=== PATIENT | male | born 1940 | race Caucasian/White ===

== ENCOUNTER 2016-10-01 03:19 | Observation (INO) ==
[2016-10-01 04:03] LABS: Basophils # (Auto) 0 K/mcL (0.0-0.3); Basophils % (Auto) 0.3 % (0.0-2.0); Eosinophils # (Auto) 0.3 K/mcL (0.0-0.7); Eosinophils % (Auto) 2.7 % (0.0-7.0); Granulocytes % (Auto) 70.7 % (38.0-78.0); Lymphocytes # (Auto) 1.8 K/mcL (1.5-4.8); Lymphocytes % (Auto) 19.1 % (15.5-49.0); Mean Cell Volume 99.7 fL (80.0-100.0); Mean Corpuscular HGB Conc 32.8 g/dL (31.0-36.0); Mean Corpuscular Hemoglobin 32.7 pg (26.0-34.0); Monocytes # (Auto) 0.7 K/mcL (0.1-0.9); Monocytes % (Auto) 7.2 % (1.0-9.0); Platelet Count 172 K/mcL (140-440); RBC 4.65 M/mcL (4.50-5.90); Red Cell Distribution Width 12.7 % (11.5-14.5)
[2016-10-01] MEDS ORDERED: ASPIRIN 81 MG TAB.CHEW CHEWED ONE (04:05)
[2016-10-01] MEDS ORDERED: ATORVASTATIN 20 MG TABLET PO ONE (04:33)
[2016-10-01 04:50] LABS: ALT/SGPT 20 U/l (0-40); Albumin 4.6 gm/dL (3.2-5.2); Albumin/Globulin Ratio 1.8 (1.0-2.3); Alkaline Phosphatase 60 U/L (39-117); Blood Urea Nitrogen 15 mg/dl (8-23)
--- NOTE | 2016-10-01 05:47 | Cat Scan Report ---
CLINICAL INFORMATION: Acute dysarthria evaluate for stroke COMPARISON: None. FINDINGS: CLINICAL INFORMATION: Acute dysarthria - possible stroke COMPARISON: None. TECHNIQUE: 2.5 mm helical slices were obtained in the skull base to vertex. Following reconstruction, axial reformatted images were reviewed at bone and parenchymal windows. FINDINGS: The ventricles, sulci, fissures, and cisterns are symmetrically enlarged compatible with mild age-related atrophy - no extra-axial fluid collections are appreciated. Patchy chronic ischemic changes in the deep cerebral white matter are also typical for age. There is a vague low-attenuation focus in the anterior left parietal lobe, near vertex, which is approximately 2 cm involving the cortical and subcortical white matter. This could indicate a subtle subacute infarct. There is no acute intracerebral hemorrhage, mass effect or edema. Bone windows show no osseous abnormality. Moderate mucosal thickening in the ethmoid sinuses compatible with moderate ethmoid sinusitis incidentally noted IMPRESSION: 1. No intracerebral hemorrhage. 2. Suspect small subacute cortical based infarct in the anterior left parietal lobe - near vertex 3. Mild atrophy and chronic ischemic changes in the deep cerebral white matter typical for age. 4. Moderate ethmoid sinusitis Interpreted and Authenticated by: Yair Jorgensen 10/01/16
--- NOTE | 2016-10-01 05:50 | XRay Report ---
CLINICAL INFORMATION: Stroke COMPARISON: 11/19/2011 FINDINGS: The heart is unremarkable. Mediastinum and pulmonary vessels are normal. There is minor atelectasis in the right base. No effusions. Bones and soft tissues are normal IMPRESSION: Mild right basilar atelectasis Interpreted and Authenticated by: Yair Jorgensen 10/01/16
--- NOTE | 2016-10-01 07:42 | Emergency Department Note ---
Neuro HPI - General Chief Complaint: Stroke Symptoms Stated Complaint: speech change Time Seen by Provider: 10/01/16 03:52 Source: patient Mode of arrival: ambulatory Limitations: no limitations - History of Present Illness HPI Narrative: This patient went to bed at 6 PM and woke up at 12:30 AM. At that time he was having some difficulty with speech with finding words and slurred speech. No other neuro deficits. He finally came to the emergency room 3 hours later. He is outside the window as we do not know the exact time of onset of his symptoms. - Related Data Home Medications: Home Medications Medication Instructions Recorded Confirmed Clobetasol Propionate/Emoll 10/01/16 Vitamin D3 10/01/16 Allergies/Adverse Reactions: Allergies Allergy/AdvReac Type Severity Reaction Status Date / Time No Known Drug Allergies Allergy Unverified 10/01/16 04:14 Review of Systems Constitutional: Denies: fever Eyes: Denies: eye pain ENT ED: Denies: ear pain Cardiovascular: Denies: chest pain, palpitations Respiratory: Denies: cough Gastrointestinal: Denies: abdominal pain, nausea Genitourinary: Denies: urgency Musculoskeletal: Denies: back pain Integumentary: Denies: rash Neurological: Denies: headache, weakness, numbness, paresthesias, confusion, abnormal gait, vertigo Past Medical History - Past Medical History Medical history: Reports: no medical history Physical Exam - General Limitations: no limitations General appearance: alert - Head Head exam: atraumatic - Eye Eye exam: Present: normal appearance - ENT ENT exam: normal exam - Neck Neck exam: Present: normal inspection - Chest Chest inspection: Present: normal inspection - Respiratory Respiratory exam: Present: normal lung sounds bilaterally - Cardiovascular Cardiovascular exam: Present: regular rate, normal rhythm, normal heart sounds - Abdominal Exam Abdominal exam: Present: soft. Absent: distention, tenderness - Neurological Exam Neurological exam: Present: alert - Expanded Neurological Exam Speech: Present: expressive aphasia Cranial nerves: facial palsy (VII): Normal Motor strength - LUE: 5/5 Motor strength - RUE: 5/5 Motor strength - LLE: 5/5 Motor strength - RLE: 5/5 - Psychiatric Psychiatric exam: Present: normal affect - Skin Skin exam: Present: warm, dry Course Vital Signs Temperature 97.7 F 10/01/16 03:22 Pulse Rate 68 10/01/16 03:22 Respiratory Rate 16 10/01/16 03:22 Blood Pressure 189/89 10/01/16 03:22 Pulse Oximetry (%) 98 10/01/16 03:22 Temperature 98.1 F 10/01/16 06:36 Pulse Rate 60 10/01/16 06:36 Respiratory Rate 20 10/01/16 06:36 Blood Pressure 155/78 10/01/16 06:36 Pulse Oximetry (%) 99 10/01/16 05:25 Neuro Symptoms/Deficit - MDM Narrative Medical decision making narrative: I discussed the case with the stroke neurologist Dr. Isidro Mensah. She felt the patient's outside the window for TPA treatment and there is really nothing that they could offer. - Lab Data Lab results reviewed: Yes I reviewed the patient's lab results. Result diagrams: 10/01/16 03:39 10/01/16 03:39 Lab Results 10/01/16 10/01/16 10/01/16 Range/Units 03:38 03:39 03:39 WBC 9.5 (4.5-11.0) K/mcL RBC 4.65 (4.50-5.90) M/mcL Hgb 15.2 (13.5-16.5) g/dL Hct 46.3 (41.0-55.0) % MCV 99.7 (80.0-100.0) fL MCH 32.7 (26.0-34.0) pg MCHC 32.8 (31.0-36.0) g/dL RDW 12.7 (11.5-14.5) % Plt Count 172 (140-440) K/mcL MPV 8.7 (7.4-10.4) fL Gran % 70.7 (38.0-78.0) % Lymph % (Auto) 19.1 (15.5-49.0) % Blanco % (Auto) 7.2 (1.0-9.0) % Eos % (Auto) 2.7 (0.0-7.0) % Baso % (Auto) 0.3 (0.0-2.0) % Gran # 6.7 (1.8-8.0) K/mcL Lymph # 1.8 (1.5-4.8) K/mcL Blanco # 0.7 (0.1-0.9) K/mcL Eos # 0.3 (0.0-0.7) K/mcL Baso # 0 (0.0-0.3) K/mcL PT 13.2 (11.9-14.5) sec INR 1.0 (0.9-1.1) APTT 28 (20-37) sec Sodium (133-145) mmol/L Potassium (3.3-5.1) mmol/L Chloride (96-108) mmol/L Carbon Dioxide (22-30) mmol/L Anion Gap (8-16) BUN (8-23) mg/dl Creatinine (0.7-1.2) mg/dl GFR Calculation Glucose (70-105) mg/dL Calcium (8.6-10.4) mg/dl Total Bilirubin (0.0-1.0) mg/dL AST (0-37) U/l ALT (0-40) U/l Alkaline Phosphatase (39-117) U/L Total Protein (5.9-8.4) gm/dL Albumin (3.2-5.2) gm/dL Globulin (2.2-3.7) gm/dL Albumin/Globulin Ratio (1.0-2.3) 10/01/16 Range/Units 03:39 WBC (4.5-11.0) K/mcL RBC (4.50-5.90) M/mcL Hgb (13.5-16.5) g/dL Hct (41.0-55.0) % MCV (80.0-100.0) fL MCH (26.0-34.0) pg MCHC (31.0-36.0) g/dL RDW (11.5-14.5) % Plt Count (140-440) K/mcL MPV (7.4-10.4) fL Gran % (38.0-78.0) % Lymph % (Auto) (15.5-49.0) % Blanco % (Auto) (1.0-9.0) % Eos % (Auto) (0.0-7.0) % Baso % (Auto) (0.0-2.0) % Gran # (1.8-8.0) K/mcL Lymph # (1.5-4.8) K/mcL Blanco # (0.1-0.9) K/mcL Eos # (0.0-0.7) K/mcL Baso # (0.0-0.3) K/mcL PT (11.9-14.5) sec INR (0.9-1.1) APTT (20-37) sec Sodium 139 (133-145) mmol/L Potassium 3.8 (3.3-5.1) mmol/L Chloride 99 (96-108) mmol/L Carbon Dioxide 31 H (22-30) mmol/L Anion Gap 9.0 (8-16) BUN 15 (8-23) mg/dl Creatinine 0.9 (0.7-1.2) mg/dl GFR Calculation 83 Glucose 127 H (70-105) mg/dL Calcium 8.7 (8.6-10.4) mg/dl Total Bilirubin 0.4 (0.0-1.0) mg/dL AST 17 (0-37) U/l ALT 20 (0-40) U/l Alkaline Phosphatase 60 (39-117) U/L Total Protein 7.2 (5.9-8.4) gm/dL Albumin 4.6 (3.2-5.2) gm/dL Globulin 2.6 (2.2-3.7) gm/dL Albumin/Globulin Ratio 1.8 (1.0-2.3) - Radiology Data Radiology results reviewed: Yes I reviewed the patient's radiology results. (CT of head was negative) Disposition Clinical Impression: Stroke Disposition: Xfer As Outpt/Obs ([facility]) Condition: Good
[2016-10-01] MEDS ORDERED: POTASSIUM CHLORIDE 20 MEQ PACKET PO PRN (07:58)
[2016-10-01] MEDS ORDERED: ACETAMINOPHEN 325 MG TABLET PO PRN (07:58)
[2016-10-01] MEDS ORDERED: ACETAMINOPHEN 1,000 MG/100 ML BOTTLE IV PRN (07:58)
[2016-10-01] MEDS ORDERED: ONDANSETRON 4 MG/2 ML VIAL IV PRN (07:58)
[2016-10-01] MEDS ORDERED: MAGNESIUM SULFATE 2 GM/50 ML BAG IV PRN (07:58)
[2016-10-01] MEDS ORDERED: MAGNESIUM HYDROXIDE 30 ML ORAL.SUSP PO PRN (07:58)
[2016-10-01 08:14] LABS: Appearance,Urine CLEAR; Bilirubin,Urine NEG (NEG); Color,Urine YELLOW; Glucose,Urine (UA) NEGATIVE (NEG); Leukocyte Esterase,Urine NEG /uL (NEG); Nitrate,Urine NEG (NEG); Protein,Urine NEG (NEG); Specific Gravity,Urine 1.014 (1.000-1.035); Urine Blood NEG mg/dL (<0.03); Urobilinogen,Urine NEG (NEG)
[2016-10-01] MEDS: 0.9 % SODIUM CHLORIDE 1,000 ML IV SCH (08:18)
[2016-10-01] MEDS ORDERED: ATORVASTATIN 40 MG TABLET PO SCH (09:00)
--- NOTE | 2016-10-01 09:06 | History and Physical Report ---
DATE OF ADMISSION: 10/01/2016 REASON FOR ADMISSION: New onset expressive aphasia. HISTORY OF CHIEF COMPLAINT: The patient is a 76-year-[place] , [place]. He woke up around 12:30 this morning with difficulty word finding and slurred speech; however, he denied any thunderclap headache. He went to bed around 6 in the evening feeling fine, subsequently came to [facility] Emergency Room. Initial workup was essentially unremarkable with negative head CT and expressive aphasia. Neurology was consulted, but patient was out of the window for TPA. He was advised to be admitted for further stroke workup. The patient at the time of examination is alert, oriented, but unable to express, has significant word finding. He denies diplopia, seizure episode. Denies incontinence, unilateral weakness, sensation abnormalities or swallowing difficulties. He is an active smoker, does not take any medication. He denies prior similar events. REVIEW OF SYSTEMS: Ten-point review of system was performed and negative except the ones discussed above. PAST MEDICAL HISTORY: None significant. FAMILY HISTORY: None significant. SOCIAL HISTORY: The patient is to his , Liudmila, [place] He smokes one-quarter pack a day, drinks occasional wine. He is retired. FULL CODE STATUS. He sees primary care physician, Jackie Viveros MD. MEDICATIONS: None. ALLERGIES: None. PHYSICAL EXAMINATION: GENERAL: The patient is alert. BMI 21. Height 5 feet 11 inches. VITAL SIGNS: Blood pressure 157/74, respiration rate 20, temperature 98.4, pulse 65, sats 99% on room air. HEENT: Pupils bilaterally symmetric and reactive. Oral cavity is dry. No ear or nose discharge. Head is normocephalic and atraumatic. NECK: No lymphadenopathy. HEART: S1, S2, regular rhythm. Ejection systolic murmur appreciated, but no adventitious sounds. CHEST: Clear to auscultation. ABDOMEN: Soft and nontender. LOWER EXTREMITIES: No cyanosis or clubbing. No joint swelling except for generalized dry skin. Normal range of motion of the joints. SKIN: Otherwise, no suspicious lesions. PSYCHIATRIC: Alert and cooperative. NEURO: Classic expressive aphasia, but no unilateral facial droop, unilateral weakness or sensory abnormalities. Reflexes are symmetrical. Cerebellar signs negative. Higher functions preserved except for repetition. LABS AND IMAGING: Head CT: Subacute cortical based infarct in the anterior left parietal lobe. X-ray chest: Right atelectasis. White count 9.5, hemoglobin 15.2, platelets 172, sodium 139, potassium 3.8, creatinine 0.9, BUN 15. UA unremarkable. ASSESSMENT AND PLAN: A 76-year-old admitted with acute left hemispheric CVA with expressive aphasia. 1. Left hemispheric CVA, beyond the window for TPA, ischemic. Start aspirin and statin, further stroke workup including echocardiogram, MRI brain along with MR angiogram neck. Continue aggressive bowel protocol and speech therapy evaluation, physical therapy and future stroke prophylaxis. 2. The patient will be admitted as observation for continued stroke evaluation as above. AA:[email or web address] Job ID: [id number] Doc ID: [id number] Napoleon Monson MD MTDD
[2016-10-01] MEDS: MULTIVIT,THER IRON,CA,FA & MIN 1 TABLET PO SCH (10:11)
[2016-10-01] MEDS: HEPARIN 5,000 UNIT/ML VIAL SQ SCH ×2 (10:11→20:13)
[2016-10-01] MEDS: DOCUSATE SODIUM 100 MG CAPSULE PO SCH ×2 (10:11→20:18)
[2016-10-01] MEDS: 0.9 % SODIUM CHLORIDE 10 ML SYRINGE IV SCH ×2 (14:10→20:18)
[2016-10-01] MEDS ORDERED: SENNOSIDES/DOCUSATE SODIUM 1 TAB TABLET PO SCH (21:00)
[2016-10-02] MEDS: 0.9 % SODIUM CHLORIDE 1,000 ML IV SCH (04:17)
[2016-10-02] MEDS: 0.9 % SODIUM CHLORIDE 10 ML SYRINGE IV SCH (05:18)
[2016-10-02 05:44] LABS: Mean Cell Volume 100.3 fL (80.0-100.0); Mean Corpuscular HGB Conc 32.8 g/dL (31.0-36.0); Mean Corpuscular Hemoglobin 32.9 pg (26.0-34.0); Platelet Count 148 K/mcL (140-440); RBC 4.16 M/mcL (4.50-5.90); Red Cell Distribution Width 12.8 % (11.5-14.5)
[2016-10-02 06:39] LABS: ALT/SGPT 18 U/l (0-40); Albumin 3.9 gm/dL (3.2-5.2); Albumin/Globulin Ratio 2.1 (1.0-2.3); Alkaline Phosphatase 54 U/L (39-117); Bilirubin,Direct < 0.2 mg/dL (0.0-0.3); Blood Urea Nitrogen 13 mg/dl (8-23); Gamma Glutamyl Transpeptidase 18 U/L (8-61); Magnesium 1.9 mg/dL (1.6-2.5); Uric Acid 5.7 mg/dL (2.5-8.0)
--- NOTE | 2016-10-02 08:27 | Echocardiogram Report ---
ECHOCARDIOGRAM: 2-D and M-mode echocardiography with cardiac Doppler and color flow imaging were performed with a [employer] Aplio MX. Indication is CVA. A diagnostic M-mode tracing of the LV could not be obtained. Overall size of the four cardiac chambers appeared normal. LV wall thickness appeared moderately increased. Systolic performance appeared normal. Estimated ejection fraction is 65%. The aortic root appeared mildly to moderately dilated. The aortic valve appeared trileaflet and normal. There was no evidence for aortic stenosis or aortic regurgitation by Doppler interrogation. The mitral and tricuspid valves appeared unremarkable. Doppler interrogation of LV inflow disclosed mildly prolonged early diastolic deceleration time and slight ''a'' wave dominance indicating delayed LV relaxation. There was no evidence for mitral regurgitation. Pulmonary venous interrogation disclosed normal ''s'' wave dominance. The pulmonic valve was not visualized. Pulmonary artery acceleration time was difficult to measure. There was no evidence for pulmonic stenosis or pulmonic regurgitation. There was no evidence for tricuspid regurgitation. No intracardiac shunting was appreciated. There was no evidence of pericardial effusion. The IVC was of normal diameter and showed normal respiratory variation. Sinus rhythm was present. CONCLUSION: Mild to moderate aortic root dilatation. Moderate concentric LVH with normal systolic performance. (See accompanying M-mode and Doppler reports for quantitation.) LWG:[id number] Job ID: [id number] Doc ID: [id number] Tariq Sullivan MD
[2016-10-02 08:49] LABS: Lymphocytes % 17 % (15-49); Macrocytosis 1+ (NONE SEEN); Monocytes % (Manual) 10 % (1-9); Platelet Estimate NORMAL (NORMAL); RBC Morphology ABNORM (NORMAL); Segmented Neutrophils % 73 % (38-78)
[2016-10-02] MEDS ORDERED: ASPIRIN 325 MG ENTERIC COATED TABLET PO SCH (09:00)
[2016-10-02] MEDS ORDERED: ATORVASTATIN 40 MG TABLET PO SCH (09:00)
[2016-10-02] MEDS: MULTIVIT,THER IRON,CA,FA & MIN 1 TABLET PO SCH (09:50)
[2016-10-02] MEDS: DOCUSATE SODIUM 100 MG CAPSULE PO SCH (09:50)
[2016-10-02] MEDS: HEPARIN 5,000 UNIT/ML VIAL SQ SCH (09:51)
--- NOTE | 2016-10-02 11:45 | Magnetic Resonance Report ---
CLINICAL INFORMATION: Acute dysarthria COMPARISON: None. TECHNIQUE: Sagittal T1 FLAIR, axial diffusion ADC, T1 FLAIR, T2 FLAIR propeller, T2 propeller gradient, T1 post Magnevist and coronal T1 FLAIR post Magnevist images were acquired. FINDINGS: The ventricles, sulci, fissures and cisterns are symmetrically enlarged compatible with mild age-related atrophy - no extra-axial fluid collections or masses are appreciated. Diffusion-weighted images show serpiginous regions of restricted diffusion in the left frontoparietal junction, near vertex, involving both the pre and post central gyrus and underlying subcortical white matter. This would include the motor and sensory strips. There are also scattered regions of restricted diffusion within the cortex and white matter more inferiorly in the left parietal lobe. There is no evidence of hemorrhage. Scattered chronic ischemic foci noted in cerebral white matter. Some of one intracerebral vessels, extra-axial cranial nerves pituitary and orbits are normal IMPRESSION: Moderate sized acute nonhemorrhagic infarct in the left frontoparietal junction involving the motor/sensory strips and speech centers Mild underlying atrophy and scattered chronic ischemic foci typical for age. Interpreted and Authenticated by: Yair Jorgensen 10/02/16
--- NOTE | 2016-10-02 11:54 | Discharge Plan ---
Discharge Plan - Patient/Caregiver Discharge Instructions Discharge Summary: DISCHARGE DIAGNOSES * Left fronto-parietal ischemic CVA- patient beyond the window for thrombolytics. managed per stroke protocol. Clinically improving. No significant physical limitation except for expressive aphasia and gait incoordination. Started on aspirin and statin. MRA negative for significant stenosis/occlusion. Home health physical therapy/speech therapy. continue follow-up with PCP and post stroke rehabilitation with home health physical therapy. Patient requesting discharge. BRIEF HOSPITAL COURSE Patient was admitted with neurologic expressive aphagia/incoordination. MRI reveals left frontoparietal ischemic CVAwithout evidence of hemorrhage. Patient started on aspirin/statin while he was monitored for stroke protocol. Patient is feeling much better and requesting discharge. reviewed echo(no evidence of atrial or biventricular thrombi) and MRI/MRA findings with patient. discharging with home health for continued speech and physical therapy. Continue aspirin and statin as advised for future stroke prophylaxis. discharge instructions as below Activity: as per physical therapy Diet: Regular Diet Additional Instructions: Follow-up PCP in 5 days I recommend primary care physician to check CBC BMP UA as a posthospital follow- up continue aspirin and statin as advised for stroke prophylaxis Continue aggressive bowel regimen to prevent constipation Continue fall precautions Continue aggressive PT /ST eval with home health All meals on chair sitting upright at 90 degrees to prevent aspiration Return to ER if worsening speech difficulties/weakness Review risk and side effect profile of medications including aspirin. Side effect may include mild to severe reaction including life threatening bleed,/ gastric ulceration even rom anaphylaxis which can be prevented by close follow-up with PCP and monitoring for side effects Refrain from smoking and alcohol Continue diet and activity as advised Discussed importance of medication adherence Please review medication list with patient prior to discharge Please schedule follow-up with PCP/Providers prior to discharge and provide printouts Portions of this chart may have been created with [employer] voice recognition software. Occasional wrong-word or ?sound-like? substitutions may have occurred due to the inherent limitations of voice recognition software. Please read the chart carefully and recognize, using context, where the substitutions have occurred. CC- PCP Prescriptions: Aspirin [Ecotrin] 325 mg PO DAILY #60 tab.ec Atorvastatin [Lipitor] 40 mg PO HS #30 tablet - Follow up Plan Follow up with: Jackie Viveros MD [Primary Care Provider] - 10/07/16 2:30 pm Disposition: Home Health Service Prognosis: Good Rehab Potential: Good I certify that the patient requires SNF services.: No Overall status at discharge: patient is progressing back to baseline
--- NOTE | 2016-10-02 11:56 | Magnetic Resonance Report ---
CLINICAL INFORMATION: Acute CVA - left frontoparietal junction. Dysarthria COMPARISON: None. TECHNIQUE: 3D SPGR [id number] technique was used to study the intracerebral vasculature. FINDINGS: There is diminished signal within intracranial vertebral basilar and posterior cerebral arteries which is likely artifact. The intracranial internal carotid, anterior, and middle cerebral arteries and branches are normal. IMPRESSION: Negative exam Interpreted and Authenticated by: Yair Jorgensen 10/02/16
--- NOTE | 2016-10-02 12:01 | Magnetic Resonance Report ---
CLINICAL INFORMATION: Left frontal parietal acute CVA. COMPARISON: None. FINDINGS: Thoracic aortic arch is normal in contour and caliber and aortic branching is conventional. The brachycephalic, both subclavian, both common, internal and external carotid and vertebral arteries are normal in contour and caliber with normal signal. IMPRESSION: Normal Interpreted and Authenticated by: Yair Jorgensen 10/02/16
[2016-10-03] MEDS ORDERED: ATORVASTATIN 40 MG TABLET PO SCH (21:00)
== END 2016-10-02 13:15 | disposition home health service (06) ==
LOC: ED 03:19 → ICU 03:19
PROVIDERS: ADMIT Internal Medicine; ATTEND Internal Medicine